=== PATIENT | female | born 1970 | race Caucasian/White ===

== ENCOUNTER → 2016-08-18 | Outpatient (CLI) | payer OTHER ==
[~2016-08-18] MED LIST: EFFSR75 PO; MULT-506 PO
--- NOTE | 2016-08-20 14:07 | MAMMOGRAPHY REPORT ---
BILATERAL DIGITAL SCREENING MAMMOGRAM TOMOSYNTHESIS WITH CAD: 08/18/2016 CLINICAL HISTORY: Routine screening examination. TECHNIQUE: Breast tomosynthesis in addition to standard 2D mammography was performed. Current study was also evaluated with a Computer Aided Detection (CAD) system. COMPARISON: Comparison is made to exams dated: 08/13/2015 mammogram, 08/07/2014 mammogram, 06/20/2013 mammogram, 06/28/2013 ultrasound, 05/24/2012 mammogram, and 05/19/2011 mammogram - [facility]. BREAST COMPOSITION: The tissue of both breasts is extremely dense, which lowers the sensitivity of mammography. FINDINGS: There is a 7 mm asymmetry with possible architectural distortion in the far superior post erior left breast, projecting near the pectoralis muscle on the MLO view, for which additional spot compression tomosynthesis, true lateral views and possibly ultrasound are recommended. A possible 4 mm mass in the far posterior inferior right breast is incompletely visualized on the MLO view. Add itional spot compression tomosynthesis, exaggerated lateral CC views and possibly ultrasound are rec ommended. No suspicious clustered microcalcifications are seen bilaterally. IMPRESSION: ACR BI-RADS CATEGORY 0: INCOMPLETE EVALUATION: NEED ADDITIONAL IMAGING EVALUATION The asymmetry with possible associated distortion in the far superior and posterior left breast, an d possible 4 mm mass in the posterior inferior right breast need additional imaging evaluation. The patient will be called to schedule an appointment. Approximately 10% of breast cancers are not detected with mammography. A negative mammographic repor t should not delay biopsy if a clinically suggestive mass is present. Roseann Cunningham M.D. ay/:08/19/2016 21:55:31 Softball Umpire: Loraine VILLEGAS(Krystyna)([place]), [facility] letter sent: Addl Imaging 0 BI-RADS Code: ACR BI-RADS Category 0: Incomplete Evaluation: Need Additional Imaging Evaluation
== END | disposition home or self-care (01) ==
LOC: C.MAMM 11:21
PROVIDERS: ATTEND Family Medicine
DX: Z12.31 Encounter for screening mammogram for malignant neoplasm of breast (principal); R92.8 Other abnormal and inconclusive findings on diagnostic imaging of breast

== ENCOUNTER → 2016-08-27 | Outpatient (CLI) | payer OTHER ==
--- NOTE | 2016-08-27 12:47 | MAMMOGRAPHY REPORT ---
BILATERAL DIGITAL DIAGNOSTIC MAMMOGRAM TOMOSYNTHESIS AND TARGETED BILATERAL ULTRASOUND: 08/27/2016 CLINICAL HISTORY: 45 are old woman called back from screening mammography for a superior posterior a symmetry in the left breast, and inferior posterior asymmetry in the right breast. Family history o f breast cancer = paternal aunt. TECHNIQUE: Spot compression tomosynthesis MLO images of each breast, and tomosynthesis left ML views were obtained. COMPARISON: Comparison is made to exams dated: 08/18/2016 mammogram, 08/13/2015 mammogram, 08/07/2014 mammogram, 01/06/2014 mammogram, 06/28/2013 ultrasound, and 05/24/2012 mammogram - [facility]. BREAST COMPOSITION: The tissue of both breasts is extremely dense, which lowers the sensitivity of mammography. FINDINGS: On the spot compression MLO view of the right breast, there is persistence of a 6.9 mm ma ss in the far posterior, slightly inferior breast. No associated architectural distortion or cluste red micro-calcification. Further characterization with ultrasound was performed. This corresponds to the lateral aspect of the breast based on its location in the talus and this is series. The spot compression MLO view of the left superior and posterior breast demonstrates partial effacement of t he asymmetry with possible associated distortion. The spot compression MLO view and left MLO view a ppear very similar to prior available mammograms, particularly the 2012 mammogram suggesting it repr esents normal overlapping tissue. Further evaluation with ultrasound was performed. Targeted ultrasound was performed in the right breast from approximately 10:00 through 7:00 axes, re troareolar breast and 2:00 to 4:00 axes and also throughout the superior left breast. In the left 1 2:00 breast, 8 cm from the nipple, there is an island of more hypoechoic tissue that is parallel in orientation. No significant increased vascularity. This most likely represents an island of normal dense fibroglandular tissue versus stromal fibrosis and is not thought to correlate with the effaci ng mammographic asymmetry. Nevertheless, a short interval follow-up targeted ultrasound is recommen d to ensure stability in 6 months. Approximate measurements are 8.5 x 2.1 x 8.9 mm. In the right 9:00 breast, 6 cm from the nipple, a morphologically normal lymph node is identified me asuring 6.3 mm. It has a thin cortex measuring 0.9 mm. Another oval parallel circumscribed nearly anechoic solid versus cystic masses identified in the 7:00 right breast, 3 cm from the nipple, measu ring 6.6 x 2.4 mm. There is internal echogenicity and intermittent internal blood flow. This could represent an additional lymph node or, located cyst. A short interval follow-up is recommended to ensure stability in 6 months. It is unclear if this mass or the lymph node in the 9:00 breast corre lates with the persistent mammographic mass as they both measure the same size. No suspicious solid masses identified. IMPRESSION: ACR-BI-RADS CATEGORY 3: PROBABLY BENIGN, TARGETED ULTRASOUND ACR-BI-RADS CATEGORY 3: ID OBABLY BENIGN 1. The left superior posterior asymmetry effaces with additional mammographic views and there is no suspicious sonographic correlate. A short interval follow-up diagnostic mammogram is recommended t o ensure stability in 6 months, and targeted left breast ultrasound should also be performed at the same time for an incidentally identified island of dense glandular tissue versus stromal fibrosis in the 12:00 axis. 2. A 6.9 mm incompletely visualized mass in the inferior, far posterior right breast may correlate with a benign lymph node in the 9:00 axis versus a lymph node versus, located cyst in the 7:00 right breast. Both of the sonographic findings have a probably benign appearance and no suspicious mass was seen on ultrasound throughout the right breast. Nevertheless, a short interval follow-up right mammogram including tomosynthesis images and repeat targeted ultrasound in the 9:00 and 7:00 axes is recommended to ensure stability in 6 months. These results and recommendations were discussed with the patient at the time of the exam. Approximately 10% of breast cancers are not detected with mammography. A negative mammographic repor t should not delay biopsy if a clinically suggestive mass is present. Roseann Cunningham M.D. ay/:08/27/2016 10:38:18 Commissioner Of Internal Revenue: Aster BARREAR)([place]), [facility] letter sent: Follow Up Recommended 3 BI-RADS Code: ACR-BI-RADS Category 3: Probably Benign Ultrasound BI-RADS: ACR-BI-RADS Category 3: P robably Benign
== END | disposition home or self-care (01) ==
LOC: C.MAMM 09:51
PROVIDERS: ATTEND Family Medicine
DX: R92.8 Other abnormal and inconclusive findings on diagnostic imaging of breast (principal); N63 Unspecified lump in breast; Z80.3 Family history of malignant neoplasm of breast

== ENCOUNTER → 2016-09-22 | Outpatient (CLI) | payer OTHER | END | disposition home or self-care (01) | LOC: C.PAPS 12:00 | PROVIDERS: ATTEND Obstetrics & Gynecology | DX: Z12.4 Encounter for screening for malignant neoplasm of cervix (principal) ==

== ENCOUNTER → 2016-09-22 | Outpatient (CLI) | payer OTHER ==
[2016-09-22 12:17] LABS: URINE APPEARANCE CLEAR (CLEAR); URINE BILIRUBIN NEG (NEG); URINE COLOR DK YELLOW; URINE EPITHELIAL CELL AUTO >30 /lpf (0-5); URINE NITRITE NEG (NEG); URINE SPECIFIC GRAVITY 1.019 (1.000-1.030); UROBILINOGEN NEG (NEG)
[2016-09-22 12:28] LABS: MANUAL MICROSCOPIC REQUIRED? NO; REVIEW REQ? NO
== END | disposition home or self-care (01) ==
LOC: C.LABSPEC 11:24
PROVIDERS: ATTEND Obstetrics & Gynecology
DX: R30.0 Dysuria (principal)

== ENCOUNTER → 2016-11-14 | Outpatient (CLI) | payer OTHER ==
--- NOTE | 2016-11-14 09:02 | DIAGNOSTIC IMAGING REPORT ---
LUMBAR SPINE 5 VIEWS CLINICAL HISTORY: Low back pain. FINDINGS: 5 views of the lumbar spine are correlated with abdominal CT dated 06/02/2016. The skeletal structures are well mineralized. There is no radiographic evidence of fracture or malalignment. Vertebral body height and alignment are maintained. The transverse and spinous processes are intact. There is no evidence of spondylolysis. The intervertebral disc spaces are well-maintained. The visualized bony pelvis appears intact. There is a nonobstructed abdominal bowel gas pattern. Moderate constipation is observed. Suture material and phleboliths are identified in the pelvis. IMPRESSION: Unremarkable radiographic evaluation of the lumbosacral spine. Electronically signed by: Nils Garrido M.D. 11/14/2016 9:00 AM Dictated Date/Time: 11/14/2016 8:58 AM
== END | disposition home or self-care (01) ==
LOC: C.RAD1850 08:37
PROVIDERS: ATTEND Family Medicine
DX: M54.5 Low back pain (principal)

== ENCOUNTER → 2017-03-02 | Outpatient (CLI) | payer OTHER ==
--- NOTE | 2017-03-02 12:30 | MAMMOGRAPHY REPORT ---
BILATERAL DIGITAL DIAGNOSTIC MAMMOGRAM TOMOSYNTHESIS WITH CAD AND TARGETED BILATERAL ULTRASOUND: 2016 CLINICAL HISTORY: 46-year-old woman presents for follow-up of bilateral asymmetries. TECHNIQUE: Breast tomosynthesis in addition to standard 2D mammography was performed. Current study was also evaluated with a Computer Aided Detection (CAD) system. COMPARISON: Comparison is made to exams dated: 08/27/2016 mammogram, 08/27/2016 ultrasound, 08/18/2016 ma mmogram, 08/13/2015 mammogram, 08/07/2014 mammogram, and 01/06/2014 mammogram - [facility] nt. BREAST COMPOSITION: The tissue of both breasts is extremely dense, which lowers the sensitivity of m ammography. FINDINGS: The breast parenchymal pattern is similar to prior exams. An asymmetry is again seen in t superior posterior left breast on the MLO view, 7.8 cm from the nipple. The asymmetry remains justin ewhat angular in appearance on the 2-D view, although this appearance is similar dating back to 2010. However, on the tomosynthesis images, there is possible architectural distortion and further evalua tion with ultrasound was performed. No other suspicious mass, architectural distortion or cluster of microcalcifications is seen in the left breast. A small, 3 x 4 mm nodular asymmetry is again seen in the far posterior and inferior right breast on t MLO view. No corresponding abnormality on the CC view. On the tomosynthesis images in the MLO pr ojection, the asymmetry effaces and has the appearance of normal fibroglandular tissue. No other new mass, architectural distortion or suspicious calcifications are seen in the right breast. Targeted ultrasound was performed in the superior left breast, and in the lateral right breast. In t he 11:00 to 12:00 left breast, 8 cm from the nipple, there is a subtle textural difference with mixed echogenicity and central hypoechoic irregular tissue, measuring approximately 6.7 x 2.4 x 7.1 mm. T his does not appear changed comparing to the prior ultrasound dated 08/27/2016, and may correlate wit h the angular mammographic asymmetry. Definitive characterization with an ultrasound guided core bio psy is recommended. Ultrasound performed in the lateral right breast 7:00 axis, 3 cm from the nipple, fails to demonstrat e the previously observed hypoechoic benign-appearing mass. A morphologically normal lymph node is a gain seen in the 9:00 right breast, 6 cm from the nipple. No other suspicious solid mass is seen in the lateral right breast. IMPRESSION: ACR BI-RADS CATEGORY 4B: INTERMEDIATE SUSPICION FOR MALIGNANCY, TARGETED ULTRASOUND ACR BI-RADS CATEGORY 4B: INTERMEDIATE SUSPICION FOR MALIGNANCY 1. Ultrasound guided core biopsy is recommended for an irregular except echogenicity, centrally hypo echoic 7 mm mass in the 11:00 to 12:00 left breast, 8 cm from the nipple. Correlation with postproce dure tomosynthesis images is recommended to ensure this lesion correlates with the mammographic asymm etry. 2. Less conspicuous nodular asymmetry in the inferior posterior right breast on the MLO view, that h as the appearance of normal overlapping glandular tissue on the tomosynthesis images. No suspicious sonographic correlate was seen. Pending benign pathology results in the left breast, another six-mon th follow-up right diagnostic mammogram and possible ultrasound is recommended to ensure longer stabi lity. These results and recommendations were discussed with the patient at the time of the exam. Approximately 10% of breast cancers are not detected with mammography. A negative mammographic report should not delay biopsy if a clinically suggestive mass is present. Roseann Cunningham M.D. ay/:03/02/2017 08:53:20 Enterprise Applications Manager: Aster VILLEGAS(Krystyna)(M), [facility] letter sent: Abnormal 4/5 BI-RADS Code: ACR BI-RADS Category 4B: Intermediate Suspicion For Malignancy Ultrasound BI-RADS: ACR BI-RADS Category 4B: Intermediate Suspicion For Malignancy
== END | disposition home or self-care (01) ==
LOC: C.MAMM 08:11
PROVIDERS: ATTEND Family Medicine
DX: Z09 Encounter for follow-up examination after completed treatment for conditions other than malignant neoplasm (principal); R92.8 Other abnormal and inconclusive findings on diagnostic imaging of breast; N63 Unspecified lump in breast; N64.89 Other specified disorders of breast

== ENCOUNTER → 2017-03-09 | Outpatient (CLI) | payer OTHER ==
--- NOTE | 2017-03-09 11:51 | Discharge Instructions ---
Discharge Instructions Procedure Procedure Date: Mar 09, 2017. Reason for visit: Left Mass. Discharge Discharge Date: Mar 09, 2017. Discharge Diagnosis: post left breast ultrasound guided core biopsy Instructions Activity Recommendations: Additional Limitations (see below) Return to School/Work: no limitations Recommended Home Diet: No Limitations Provider Instructions: ACTIVITY RECOMMENDATIONS: * No lifting, pushing, pulling or exercising the affected side for three days. RETURN TO SCHOOL/WORK: * You may return to work/school after the procedure, but do not perform any strenuous activities for 24 to 48 hours. MEDICATIONS: * Tylenol (two 325 mg) every four to six hours if needed for mild pain (if not allergic to Tylenol). DIET: * Resume previous diet. SPECIAL CARE INSTRUCTIONS: * Keep biopsy site dry for 24 hours. May shower after 24 hours, but do not soak (bathe) incision. * May remove Tegaderm (plastic patch) tomorrow AFTER showering. * Leave the steri-strips on for one week. Allow the steri-strips to fall off by themselves. If not off after one week, you may remove them. You may place a Bandaid crosswise over the strips, if desired. * Apply ice 10 minutes on and 10 minutes off as needed. * Wear a bra at bedtime to sleep more comfortably for 2-3 days. * Your referring physician should have the results after approximately 5 to 7 business days. * Call for unusual bleeding, fever, drainage, etc or if you have any questions call [phone] during normal business hours or after hours call Dr Cunningham, . FOLLOW UP VISIT: Follow-up with Referring Physician as scheduled. Allergies Coded Allergies: No Known Allergies (Verified , 11/13/15) Abigail Daniels Recommendations: Call your doctor if: * Temperature above 101 degrees * Pain not relieved by pain medicine ordered * There is increased drainage or redness from any incision * You have any unanswered questions or concerns. Your Doctors Instructions noted above were prepared by provider Roseann Cunningham. Patient Signature Section: Patient Instructions Signature Page Jocy Mendoza Patient (or Guardian) Signature/Date: I have read and understand the instructions given to me by my caregivers. Caregiver/RN/Doctor Signature/Date: The above-named patient and/or guardian has received patient instructions on this date. + Original Patient Signature Page (only) stays with chart. Please make copy for patient.
--- NOTE | 2017-03-09 14:33 | MAMMOGRAPHY REPORT ---
THIS REPORT HAS BEEN AMENDED. ULTRASOUND GUIDED BIOPSY LEFT BREAST: 03/09/2017 CLINICAL HISTORY: 46-year-old woman presents for biopsy of a subtle mixed echogenicity mass in the 11 :00 left breast, 8 cm from the nipple, thought to correlate with a possible area of architectural dis tortion seen on the left MLO view mammographically. COMPARISON: Comparison is made to exams dated: 03/02/2017 ultrasound, 03/02/2017 mammogram, 08/27/2016 [facility] mogram, 08/27/2016 ultrasound, 08/18/2016 mammogram, and 08/13/2015 mammogram - [facility]. PATIENT CONSENT: The procedure, risks and benefits were discussed with the patient and informed conse nt was obtained both verbally and in writing. Specific risks to this procedure include: bleeding, in fection, puncture of adjacent structure, nontarget biopsy, sampling error, pain, metal allergy and me dication reaction. PROCEDURE DESCRIPTION: A time out was performed and the left breast was agreed as the site of biopsy. The skin was prepped and draped in the usual sterile fashion. The subtle mixed echogenicity mass in the 11:00 left breast was chosen as the target for biopsy. Subcutaneous and intraparenchymal 1% buffe red lidocaine, with and without epinephrine, was administered as local anesthesia. A skin incision wa s made. Through the incision, 3 samples were taken with a 14 gauge Achieve biopsy device. A ribbon s haped metallic marker was placed at the biopsy site. Hemostasis was achieved after manual compression . The patient tolerated the procedure well and there was no immediate complication. The samples were sent to the pathology department in an appropriately labeled container. Postprocedure left CC, ML and MLO views were obtained. The biopsy clip is not identified on the CC v iew given the far posterior and upper inner location. The biopsy marker clip is seen on the MLO and MLO views. Based on the MLO projection the biopsy marker clip is near the area of previously describ ed distortion, which is less prominent on the current view. There is minimal post biopsy hematoma sl ightly distorting the tissue planes and making it difficult to assess for definitive mammographicson ographic correlation. Therefore, pending benign pathology results, would recommend follow-up left di agnostic mammograms and possible ultrasound to ensure stability in 6 months. IMPRESSION: ULTRASOUND GUIDED BIOPSY Status post ultrasound-guided core biopsy of a subtle mixed echogenicity mass in the 11:00 left breas t thought to correlate with a possible area of distortion seen mammographically. Pending benign pathology results would recommend follow-up left diagnostic mammograms including tomos ynthesis images and possible ultrasound to ensure stability in 6 months, given that a small amount of post biopsy hematoma distorts tissue planes and is difficult to confirm definitive mammographicsono graphic correlation of the biopsy marker clip with regard to the distortion. The patient will receive notification of the biopsy results from her referring physician. Roseann Cunningham M.D. ay/:03/09/2017 12:23:04 Manager Physical: Loraine BARRERA)([place]), [facility] AMENDMENT: 03/18/2017 Roseann Cunningham M.D. Pathology results from the ultrasound-guided core biopsy of a questionable area of architectural dist ortion in the 11:00 breast yielded fibrocystic change. No ADH, DCIS or invasive carcinoma identified . The pathology results are considered concordant with the imaging appearance of questionable distor tion, and given the small amount of bleeding on the postprocedure images to assess for mammographics onographic correlation, a short interval follow-up left diagnostic mammogram including tomosynthesis images and possible repeat ultrasound is recommended to ensure stability in 6 months. letter sent: Follow Up Recommended 3
--- NOTE | 2017-03-09 14:33 | MAMMOGRAPHY REPORT ---
UNILATERAL LEFT DIGITAL DIAGNOSTIC MAMMOGRAM TOMOSYNTHESIS WITH CAD: 03/09/2017 CLINICAL HISTORY: Status post ultrasound guided core biopsy of a mixed echogenicity hypoechoic solid mass in the left 11:00 breast, thought to correlate with a possible area of architectural distortion seen mammographically. Please refer to the report for left breast ultrasound guided core biopsy performed at the same time f or full detail. IMPRESSION: POST PROCEDURE IMAGING FOR MARKER PLACEMENT Please refer to the report for left breast ultrasound guided core biopsy performed at the same time f or full detail. Approximately 10% of breast cancers are not detected with mammography. A negative mammographic report should not delay biopsy if a clinically suggestive mass is present. Roseann Cunningham M.D. ay/:03/09/2017 11:52:55 Living Skills Advisor: Loraine BARRERA)([place]), [facility] BI-RADS Code: Post Procedure Imaging For Marker Placement
== END | disposition home or self-care (01) ==
LOC: C.MAMM 11:02
PROVIDERS: ATTEND Family Medicine
DX: R92.8 Other abnormal and inconclusive findings on diagnostic imaging of breast (principal); N63 Unspecified lump in breast

== ENCOUNTER → 2017-06-12 | Outpatient (CLI) | payer OTHER ==
[2017-06-12 11:42] LABS: URINE APPEARANCE CLOUDY (CLEAR); URINE BILIRUBIN NEG (NEG); URINE COLOR DK YELLOW; URINE EPITHELIAL CELL AUTO >30 /lpf (0-5); URINE NITRITE NEG (NEG); URINE PH 7.5 (4.5-7.5); URINE SPECIFIC GRAVITY 1.017 (1.000-1.030); UROBILINOGEN NEG (NEG)
[2017-06-12 11:44] LABS: MANUAL MICROSCOPIC REQUIRED? NO; REVIEW REQ? NO
== END | disposition home or self-care (01) ==
LOC: C.LABSPEC 11:01
PROVIDERS: ATTEND Family Medicine
DX: R30.0 Dysuria (principal)

== ENCOUNTER → 2017-07-23 | Outpatient (CLI) | payer OTHER ==
[2017-07-23 14:53] LABS: MANUAL MICROSCOPIC REQUIRED? NO; REVIEW REQ? NO; URINE APPEARANCE CLEAR (CLEAR); URINE BILIRUBIN NEG (NEG); URINE COLOR YELLOW; URINE EPITHELIAL CELL AUTO >30 /lpf (0-5); URINE NITRITE NEG (NEG); URINE PH 5.5 (4.5-7.5); URINE SPECIFIC GRAVITY 1.023 (1.000-1.030); UROBILINOGEN NEG (NEG); ZZUR CULT IF INDIC CLEAN CATCH YES
== END | disposition home or self-care (01) ==
LOC: C.LAB1850 13:47
PROVIDERS: ATTEND Obstetrics & Gynecology
DX: R39.15 Urgency of urination (principal)

== ENCOUNTER → 2017-09-23 | Outpatient (CLI) | payer OTHER ==
--- NOTE | 2017-09-23 15:56 | MAMMOGRAPHY REPORT ---
UNILATERAL LEFT DIGITAL DIAGNOSTIC MAMMOGRAM TOMOSYNTHESIS WITH CAD: 09/23/2017 CLINICAL HISTORY: History of benign ultrasound guided core needle biopsy of the left 11:00 breast per formed February 2017. The patient presents for short interval follow-up after the biopsy. TECHNIQUE: Breast tomosynthesis in addition to standard 2D mammography was performed. Current study was also evaluated with a Computer Aided Detection (CAD) system. Left CC and MLO and XCCL 2-D and to mosynthesis images were obtained. COMPARISON: Comparison is made to exams dated: 03/09/2017 mammogram, 03/09/2017 ultrasound biopsy, 03/02 ultrasound, 03/02/2017 mammogram, 08/27/2016 mammogram, and 08/18/2016 mammogram - [facility]. BREAST COMPOSITION: The tissue of the left breast is extremely dense, which lowers the sensitivity o f mammography. FINDINGS: A ribbon-shaped biopsy marker clip is seen within the left superior posterior breast at the site of prior benign ultrasound-guided biopsy. The biopsy clip is located at the site of a previous ly seen mammographic asymmetry, indicating good correlation between the biopsied sonographic finding and the mammographic asymmetry. The remainder of the left breast is stable compared to prior exams, without suspicious masses, calcifications, or areas of architectural distortion noted. IMPRESSION: ACR BI-RADS CATEGORY 2: BENIGN There is no mammographic evidence of malignancy in the left breast. Return to annual mammogram screen ing schedule is recommended, due February 2018. The patient has been verbally notified of the results. Approximately 10% of breast cancers are not detected with mammography. A negative mammographic report should not delay biopsy if a clinically suggestive mass is present. Crystal Barillas M.D. ah/:09/23/2017 14:05:25 Buckle Coverer: Aster VILLEGAS(Krystyna)(M), [facility] letter sent: Normal 1/2 BI-RADS Code: ACR BI-RADS Category 2: Benign
== END | disposition home or self-care (01) ==
LOC: C.MAMM 13:45
PROVIDERS: ATTEND Family Medicine
DX: R92.8 Other abnormal and inconclusive findings on diagnostic imaging of breast (principal)

== ENCOUNTER → 2017-10-19 | Outpatient (CLI) | payer OTHER | END | disposition home or self-care (01) | LOC: C.PAPS 14:14 | PROVIDERS: ATTEND Obstetrics & Gynecology | DX: Z01.419 Encounter for gynecological examination (general) (routine) without abnormal findings (principal) ==

== ENCOUNTER → 2018-03-01 | Outpatient (CLI) | payer BC | END | disposition home or self-care (01) | LOC: C.PATHSPEC 18:36 | PROVIDERS: ATTEND Family Medicine | DX: D23.9 Other benign neoplasm of skin, unspecified (principal) ==

== ENCOUNTER → 2018-03-08 | Outpatient (CLI) | payer BC ==
--- NOTE | 2018-03-09 14:59 | MAMMOGRAPHY REPORT ---
BILATERAL DIGITAL SCREENING MAMMOGRAM TOMOSYNTHESIS WITH CAD: 03/08/2018 CLINICAL HISTORY: Routine screening. Patient has no complaints. TECHNIQUE: The study was acquired using full field digital technology and interpreted from soft copy. Breast tomosynthesis in addition to standard 2D mammography was performed. Current study was also ev aluated with a Computer Aided Detection (CAD) system. COMPARISON: Comparison is made to exams dated: 09/23/2017 mammogram, 03/09/2017 mammogram, 03/02/2017 ma mmogram, 08/27/2016 mammogram, 08/18/2016 mammogram, and 08/13/2015 mammogram - [facility]. BREAST COMPOSITION: The tissue of both breasts is extremely dense, which lowers the sensitivity of ma mmography. FINDINGS: There are stable asymmetries in the superior, posterior left breast on the MLO view, and a stable ribbon-shaped biopsy marker clip projecting over the left pectoralis muscle. No new suspicious mass, architectural distortion or cluster of microcalcifications is seen. IMPRESSION: ACR BI-RADS CATEGORY 1: NEGATIVE There is no mammographic evidence of malignancy. A 1 year screening mammogram is recommended.( 019) The patient will receive written notification of the results. Some breast cancers are not detected with mammography. A negative mammographic report should not mae y biopsy if a clinically suggestive mass is present. Roseann Cunningham M.D. ay/:03/08/2018 16:01:43 Courseware Developer: RT Jessica(Krystyna)(M), [facility] letter sent: Normal 1/2 BI-RADS Code: ACR BI-RADS Category 1: Negative
== END | disposition home or self-care (01) ==
LOC: C.MAMM 14:14
PROVIDERS: ATTEND Family Medicine
DX: Z12.31 Encounter for screening mammogram for malignant neoplasm of breast (principal)

== ENCOUNTER 2023-08-21 04:57 | Observation (INO) ==
--- NOTE | 2023-07-21 11:35 | PAT Medication Instructions ---
Medication Instructions Date of Service July 21, 2023 Home Medications multivitamin (Daily Multi-Vitamin tablet) 1 tab PO QAM acetaminophen 650 mg tablet,extended release 1,300 mg PO QAM hydrocortisone 2.5 % topical ointment 1 applic topical UD linaclotide 290 mcg capsule (Linzess) 290 mcg PO Q2D venlafaxine 75 mg capsule,extended release 24 hr 75 mg PO QAM STOP taking 24 hours before surgery hydrocortisone 2.5 % topical ointment 1 applic topical UD DO NOT take the morning of surgery multivitamin (Daily Multi-Vitamin tablet) 1 tab PO QAM linaclotide 290 mcg capsule (Linzess) 290 mcg PO Q2D Take morning of surgery With a small sip of water, OTHERWISE NOTHING TO EAT OR DRINK AFTER MIDNIGHT: acetaminophen 650 mg tablet,extended release 1,300 mg PO QAM venlafaxine 75 mg capsule,extended release 24 hr 75 mg PO QAM Other Notes If you have any questions please call us at [phone] or [phone] or [phone] or [phone]
--- NOTE | 2023-07-29 09:09 | Anesthesiology Consultation ---
Date of Service July 29, 2023 Assessment & Plan (1) Encounter for pre-operative examination: Chart Review Chart Review: Acceptable Risk for Surgery and Patient seen in Pre Admission Testing At least 3 beers daily (usually in evenings) Pt currently scheduled as 23 hours observation. If surgeon decides to change patient to Same Day Joint, patient would be acceptable risk for CROW, pending patient is motivated, has good support and surgeon's office completes [facility] Program preop requirements. Per PAT appt on 07/29/23, no recent illness/disease exposures, illness related symptoms, or recent illness/disease positive tests. Will leave to surgeon's discretion if preop Covid testing needed Teaching & Discussion Pre-Anesthesia Teaching/Discussion Notes: Instructed NPO after midnight before surgery,except medications with 15 cc of water. Medication instructions provided according to the PAT guidelines. History Surgery Operation Date: 08/21/23 08:55 Proposed Procedures p Left Anterior Total Hip Arthroplasty - Roberto Carlos Boyle, Height/Weight Height: 5 ft 6 in Weight: 54.2 kg Allergies Allergy/AdvReac Type Severity Reaction Status Date / Time No Known Allergies Allergy Unknown Verified 07/16/23 15:57 Medications Home Medications Medication Instructions Recorded Confirmed Last Taken multivitamin (Daily Multi-Vitamin 1 tab PO QAM 03/16/19 07/16/23 Unknown tablet) acetaminophen 650 mg 1,300 mg PO QAM 07/16/23 07/16/23 Unknown tablet,extended release hydrocortisone 2.5 % topical 1 applic topical UD 07/16/23 07/16/23 Unknown ointment linaclotide 290 mcg capsule 290 mcg PO Q2D 07/16/23 07/16/23 Unknown (Linzess) venlafaxine 75 mg capsule,extended 75 mg PO QAM 07/16/23 07/16/23 Unknown release 24 hr Past Medical History Medical History Hx of migraines Raynaud phenomenon Constipation Chronic- stable Depression History of stomach ulcers ~2018 Exercise / Class Metabolic Activity II 4-5 Yardwork/Stairs/Walk up hill (one flight of stairs - no chest pain or SOB ) Past Family History Family History Uncle Myocardial infarction Colorectal cancer Aunt Crohn's disease Breast cancer Father Respiratory disorder Sister Muscular dystrophy Denies family history of Ovarian cancer Prostate cancer Past Surgical History Surgical History Hx of shoulder surgery right, 2020 History of esophagogastroduodenoscopy (EGD) History of colonoscopy History of colposcopy History of appendectomy (2015) Past Anesthesia History No Hx of Anesthesia Complications and No Family Hx of Anesthesia Complications History of PONV No Hx of PONV and No Hx of Motion Sickness Social History Smoking Status: Never smoker Do You Dip or Chew Tobacco: No Hx Alcohol Use: Yes Alcohol type: beer alcohol intake frequency: other Alcohol Intake Frequency Comment: tries to keep it to 3/day (usually in the evening) Hx Substance Use: No substance use type: does not use Review of Systems - Hx of blood transfusion 2018 (bleeding ulcer) Patient denies chest pain, shortness of breath, dyspnea on exertion, reflux, cough, wheezing, palpitations. No hx of seizures, stroke, AL, apnea/snoring. No hx of blood clots Physical Exam Vital Signs VITALS BP 110/76 P 64 TEMP 97.5 SP02 98% RESP 16 Constitutional no acute distress ENMT Mouth: no TMJ clicking Thyromental Distance: > or= 3.5 Finger Breadths (3.5) Mallampati Class: III Neck neck extension not limited Respiratory normal respiratory effort; no respiratory distress Auscultation: lungs clear to auscultation bilaterally; no wheezes Cardiovascular Rate/Rhythm: regular rate and regular rhythm Heart Sounds: no murmur Vessels: no carotid bruit Musculoskeletal Spine: no pain with cervical ROM Extremities: extremities normal to inspection Psychiatric Orientation: alert Lab Results Anesthesia Preop Results Results Anesthesia Widget: WBC 4.18 K/ul (4.8-10.8) L 07/29/23 Hgb 12.6 g/dl (12.0-16.0) 07/29/23 Hct 38.5 % (37.0-47.0) 07/29/23 Plt 239 K/uL (130-400) 07/29/23 Na 140 mmol/L (136-145) 07/29/23 K 3.9 mmol/L (3.5-5.1) 07/29/23 Cl 104 mmol/L (98-107) 07/29/23 CO2 28 mmol/L (21-32) 07/29/23 BUN 22 mg/dl (6-23) 07/29/23 Creat 0.75 mg/dl (0.6-1.2) 07/29/23 Glucose Level 82 mg/dl (70-99(Fasting)) 07/29/23 PT 10.4 Seconds (9.0-12.0) 07/29/23 PTT 29 Seconds (21-31) 07/29/23 INR 0.9 (0.9-1.1) 07/29/23 Blood Type O Positive 07/29/23 Antibody Screen NEGATIVE 07/29/23 Testing Electrocardiogram Date: 07/29/23 Findings: + NSR @ (60bpm) Rightward axis Chest X-Ray Date: 07/29/23 Findings: + NAD
[2023-08-21] MEDS ORDERED: FAMOTIDINE 20 MG TAB PO SCH (06:00)
[2023-08-21] MEDS ORDERED: dexAMETHasone**PF** 10 MG/ML VIAL IV SCH (06:00)
[2023-08-21] MEDS ORDERED: GABAPENTIN 900 MG DOSE PO SCH (06:00)
[2023-08-21] MEDS ORDERED: ACETAMINOPHEN 500 MG TAB PO SCH (06:00)
[2023-08-21] MEDS ORDERED: ROPIV 0.5% 246mg, Ketorolac 30mg, EPINEPHrine 0.5mg in NSS INFIL SCH (06:00)
[2023-08-21] MEDS ORDERED: LR 500ML BOLUS, THEN 15ML/HR IV SCH (06:00)
[2023-08-21] MEDS ORDERED: TRANEXAMIC ACID 1,000 MG **IV Intra-op IV SCH (06:00)
[2023-08-21] MEDS ORDERED: LR 60ML/HR IV SCH (06:00)
[2023-08-21] MEDS ORDERED: TRANEXAMIC ACID 1,000 MG **IV Pre-op IV SCH (06:00)
[2023-08-21] MEDS ORDERED: ceFAZolin 2000MG 2,000 MG/15 ML SYR IV SCH (06:00)
[2023-08-21] MEDS ORDERED: ROPIVACAINE 0.5% 5 MG/ML 30 ML VIAL ONE (06:15)
[2023-08-21] MEDS ORDERED: MIDAZOLAM HCL 1 MG/ML 2ML VIAL ONE ×2 (06:29→07:36)
[2023-08-21] MEDS ORDERED: fentaNYL citrate PF 100 MCG/2 ML VIAL ONE ×2 (06:29→07:14)
--- NOTE | 2023-08-21 06:36 | History & Physical Bridge Note ---
Date of Service August 21, 2023 History & Physical Bridge Note I have examined the patient, reviewed the History & Physical and in the interval since the performance of the History & Physical I have noted the following changes of clinical significance: no changes noted
[2023-08-21] MEDS ORDERED: ATROPINE SULFATE 0.1 MG/ML 10ML SYR IV PRN (06:40)
[2023-08-21] MEDS ORDERED: KETOROLAC 30 MG/ML VIAL IV PRN (06:40)
[2023-08-21] MEDS ORDERED: ePHEDrine sulfate 50 MG/ML AMP IV PRN (06:40)
[2023-08-21] MEDS ORDERED: PROMETHAZINE HCL 6.25 MG in SODIUM CHLORIDE 0.9% 50 ML IV PRN (06:40)
[2023-08-21] MEDS ORDERED: HYDROmorphone INJ 1 MG/ML SYRINGE IV PRN (06:40)
[2023-08-21] MEDS ORDERED: ORTHO JOINT ANESTHETIC ONE (06:44)
[2023-08-21 06:52] LABS: Appearance Urine Cloudy (Clear); Bacteria Urine Automated 2+ (Negative); Bilirubin Urine Negative (Negative); Blood Urine Negative (Negative); Color Urine Yellow; Glucose Urine UA Negative (Negative); Ketones Urine Negative (Negative); Leukocyte Esterase Urine Negative (Negative); Nitrite Urine Negative (Negative); Protein Urine Negative (Negative); RBC Urine Automated 0-4 /hpf (0-4); Specific Gravity Urine 1.016 (1.000-1.030); Urobilinogen Urine Negative (Negative); pH Urine 8.5 (4.5-7.5)
[2023-08-21] MEDS ORDERED: PROPOFOL IV EMULSION 10 MG/ML 20 ML VIAL IV ONE (07:24)
[2023-08-21] MEDS ORDERED: ONDANSETRON INJ 2 MG/ML 2 ML VIAL ONE (07:24)
[2023-08-21] MEDS ORDERED: LIDOCAINE 2% 2 ML VIAL/AMP(20MG/ML) INFIL ONE (07:24)
[2023-08-21] MEDS ORDERED: PHENYLEPHRINE 100MCG/ML 10ML SYR IV ONE (07:24)
[2023-08-21] MEDS ORDERED: ePHEDrine sulfate 50 MG/5 ML SYR ONE (07:24)
--- NOTE | 2023-08-21 08:02 | Operative Report ---
PG Post Operative Report Pre & Post Diagnosis Operation Date: 08/21/23 07:00 Pre-Op Diagnosis: Degnerative Joint Disease Hip Left Post-Op Diagnosis: Degnerative Joint Disease Hip Left I identified the patient and participated in the time-out.: Yes Procedure Operation Date: 08/21/23 07:00 Actual Procedures p Left Anterior Total Hip Arthroplasty(Left) - Roberto Carlos Boyle DO Surgeon Roberto Carlos Boyle DO Hospice Bereavement Coordinator Roberto Carlos Ramos PA-C Estimated Blood Loss 200 Findings Consistent with Post-Op Diagnosis Specimens Left femoral head Description of Procedure Implants used I used a ZimmerBiomet total hip arthroplasty system with a size 2 standard offset Avenir Complete stem, a 48 mm G7 cup with 2 25mm screws, an E1 polyethylene liner, a 36 mm ceramic head with a +3.5 neck. Jocy arrived at the hospital for the above procedure. She was seen in the preoperative holding area and the operative extremity was identified and signed. She was given a spinal anesthetic, a preoperative antibiotic, and TXA. She was then taken back to the operating room and laid on the table in the supine position. She was given basic sedation. The operative leg was secured to a Puristst leg positioner. The hip was then prepped and draped in sterile fashion. A timeout was done and the patient and the operative extremity was properly identified. An anterior approach was used. Dissection was taken down through the fascia and the tensor muscle belly was retracted laterally and the rectus was retracted medially. The circumflex vessels were identified and ligated. The capsule was then incised and tagged for later repair. The femoral neck was then cut and the femoral head was removed. The acetabulum was exposed. Time was spent doing a complete circumferential labral release. Sequential reaming of the acetabulum up to a size 47 reamer was done. Final reamings were done under fluoroscopy to ensure appropriate version. A Biomet 48 mm G7 cup was then impacted into place. 2 25 mm screws were placed. The E1 polyethylene liner was then snapped into place. Surrounding soft tissues were then injected with 100 cc of an orthopedic pain control cocktail. The proximal femur was then exposed. Sequential broaching up to a size 2 broach was done. Off that broach a size 36 head with a +3.5 neck was trialed. The hip was reduced and fluoroscopic images showed anatomic alignment of the implants in acceptable length. The broach was removed. The final size 2 standard offset Avenir Complete stem was then impacted into place. A ceramic 36 mm head with a +3.5 neck was then impacted onto the stem and the hip was reduced. Final fluoroscopic images showed anatomic alignment of the hip. The capsule was then closed with #1 Vicryl suture. A dilute betadyne lavage was then done for 3 minutes. The joint was then irrigated with normal saline solution. The fascia was closed with #1 PDS suture. Skin was closed with 2-0 Vicryl, compa, and a Silverlon dressing. She was then transferred to a hospital bed and taken to the post anesthesia care unit in stable condition. She tolerated the procedure well. Roberto Carlos Ramos PA-C, was present for the entire procedure. He was critical for patient positioning, prepping, draping, retraction exposure, wound closure and application of sterile dressing. I attest to the content of the Intraoperative Record and any orders documented therein. Any exceptions are noted below.
--- NOTE | 2023-08-21 08:28 | Fluoroscopy Report ---
FL hip LT 1V CLINICAL HISTORY: LT ANTERIOR CROW TECHNIQUE: 2 views were obtained with the C-arm in the OR with the above procedure. Total fluoroscopy time was 19.1 seconds. Radiation dose was 1.43 mGy. Comparison: Comparison is made to hip radiograph 08/15/2023 FINDINGS/IMPRESSION: Intraoperative images were obtained of left hip total arthroplasty Please correlate with intraoperative fluoroscopy and operative report. ACT 112: Negative or not required by law. Electronically signed by: Garett Salcedo M.D. 08/21/2023 8:27 AM
--- NOTE | 2023-08-21 09:06 | XRay Report ---
XR hip 1V LT w pelvis CLINICAL HISTORY: IN PACU - Post Surgical TECHNIQUE: 1 view of the left hip and single frontal view of the pelvis were obtained. Comparison: Comparison is made to hip radiograph 01/30/2023 FINDINGS: Patient is status post total hip arthroplasty with expected postsurgical changes including soft tissu e swelling and subcutaneous emphysema. IMPRESSION: Expected postoperative appearance status post placement of total hip arthroplasty. ACT 112: Negative or not required by law. Electronically signed by: Garett Salcedo M.D. 08/21/2023 9:05 AM
[2023-08-21] MEDS ORDERED: bisacodyL 10 MG SUPP PR PRN (09:53)
[2023-08-21] MEDS ORDERED: ONDANSETRON INJ 2 MG/ML 2 ML VIAL IV PRN (09:53)
[2023-08-21] MEDS ORDERED: MAGNESIUM HYDROXIDE SUSP 30 ML UDC PO PRN (09:53)
[2023-08-21] MEDS ORDERED: METOCLOPRAMIDE HCL INJ 5 MG/ML 2 ML VIAL IV PRN (09:53)
[2023-08-21] MEDS ORDERED: HYDROCORTISONE 2.5% OINT 20 GM TUBE TOP SCH (09:53)
[2023-08-21] MEDS ORDERED: SODIUM CHLORIDE 0.9% 1,000 ML IV SCH (09:53)
[2023-08-21] MEDS ORDERED: NALOXONE HCL 0.4 MG/1 ML VIAL/CARP IV PRN (09:53)
[2023-08-21] MEDS ORDERED: oxyCODONE HCL IR 5 MG TAB (IMMEDIATE RELEASE) PO PRN (09:53)
[2023-08-21] MEDS ORDERED: HYDROmorphone INJ 0.5 MG/0.5 ML SYR IV PRN (09:53)
[2023-08-21] MEDS: VENLAFAXINE HCL XR 75 MG CAPXR PO SCH (10:28)
[2023-08-21] MEDS: KETOROLAC 30 MG/ML VIAL IV SCH ×3 (11:06→23:23)
[2023-08-21] MEDS: MULTIVITAMIN TAB PO SCH (11:07)
[2023-08-21] MEDS: ASPIRIN 81 MG ECTAB PO SCH ×2 (11:07→20:24)
[2023-08-21] MEDS: DOCUSATE SODIUM 100 MG CAP PO SCH ×2 (11:07→20:24)
--- NOTE | 2023-08-21 11:48 | Anesthesiology Progress Note ---
Date of Service August 21, 2023 Anesthesia Post Procedure Vital Signs Vital Signs: Temp Pulse Pulse Pulse Resp BP Pulse Ox 08/21/23 10:50 36.3 C L 86 16 95/58 L 100 08/21/23 10:17 36.5 C 77 16 94/57 L 100 08/21/23 09:53 36.5 C 80 20 99/62 L 100 08/21/23 09:30 36.3 C L 72 17 99/56 L 95 08/21/23 09:20 72 17 99/56 L 95 08/21/23 09:10 77 16 102/59 L 98 08/21/23 09:00 73 21 102/59 L 97 08/21/23 08:50 73 20 101/62 93 08/21/23 08:40 88 21 99/59 L 98 08/21/23 08:30 72 12 111/63 98 08/21/23 08:20 36 C L 88 19 104/60 98 08/21/23 05:31 36.8 C 62 18 118/77 98 O2 Del Method 08/21/23 10:50 Room Air 08/21/23 10:17 Room Air 08/21/23 09:53 Room Air 08/21/23 09:30 Room Air 08/21/23 09:20 Room Air 08/21/23 09:10 Room Air 08/21/23 09:00 Room Air 08/21/23 08:50 Room Air 08/21/23 08:40 Room Air 08/21/23 08:30 Room Air 08/21/23 08:20 Room Air 08/21/23 05:31 Room Air Pain Intensity Left Hip: Pain Intensity: 2 Transfer of Care Handoff Completed per policy Notes Mental Status: alert / awake / arousable Patient Amnestic to Procedure: Yes Nausea / Vomiting: adequately controlled Pain: adequately controlled Airway Patency, RR, SpO2: stable & adequate BP & HR: stable & adequate Hydration State: stable & adequate Neuraxial Anesthesia: was administered and sensory block is resolving Anesthetic Complications: no major complications apparent
[2023-08-21] MEDS: ACETAMINOPHEN 500 MG TAB PO SCH ×2 (14:33→20:24)
[2023-08-21] MEDS: ceFAZolin 2000MG 2,000 MG/15 ML SYR IV SCH ×2 (14:45→23:23)
[2023-08-21] MEDS: SENNA 8.6 MG TAB PO SCH (20:25)
[2023-08-22 00:08] LABS: Basophils # (auto) 0.06 K/uL (0.00-0.20); Basophils % (auto) 0.4 %; Eosinophils # (auto) 0.02 K/uL (0.00-0.50); Eosinophils % (auto) 0.1 %; Hematocrit (blood only) 28.3 % (37.0-47.0); Hemoglobin 9.4 g/dl (12.0-16.0); Immature Granulocytes # (auto) 0.09 K/uL (0.01-0.20); Immature Granulocytes % (auto) 0.6 %; Lymphocytes # (auto) 2.79 K/uL (1.20-3.40); Lymphocytes % (auto) 18.9 %; Mean Corpuscular Hemoglobin 30.1 pg (25.0-34.0); Mean Corpuscular Hgb Conc 33.2 g/dL (32.0-36.0); Mean Corpuscular Volume 90.7 fL (80.0-100.0); Mean Platelet Volume 11.7 fL (9.4-12.4); Monocytes # (auto) 1.61 K/uL (0.11-0.59); Monocytes % (auto) 10.9 %; Neutrophils # (auto) 10.16 K/uL (1.40-6.50); Neutrophils % (auto) 69.1 %; Platelet Count 207 K/uL (130-400); RDW Coefficient of Variation 12.4 % (11.5-14.5); Red Blood Count 3.12 M/uL (4.20-5.40); White Blood Count 14.73 K/ul (4.8-10.8)
--- NOTE | 2023-08-22 00:20 | Hospitalist Consultation ---
Date of Consultation August 22, 2023 Assessment & Plan (1) Status post left hip replacement: -Patient is status post left hip arthroscopy done by Dr. Boyle on 08/21. -Patient is not complaining of any pain. -CBC showed a hemoglobin of 9.4, 12.6 prior to surgery. -Type and cross done, will repeat CBC in the a.m. -Continue pain meds per Ortho team. -Hip x-ray in the a.m. (2) Nausea & vomiting: -Symptoms improved after given Zofran and 500 CC NSS. -CBC changes are consistent with normal postsurgical changes. Hemoglobin of 9.4. CBC in a.m. -CMP benign. -Zofran and Reglan as needed orders in. -Will continue to monitor. Will hold on any further fluids at this time. (3) Depression: -Continue home venlafaxine. Supervising Physician Co-Signing Physician Notes Attending addendum: I have physically seen this patient, have supervised the medical residents activities, and agree with the H&P unless as otherwise noted. Assessment and Plan: Iveth Heck/emergent medical consult- Patient was initially seen emergently as a code purple was called due to patient having a near syncopal episode while going to the bathroom. She appeared pale, and was initially tachycardic and hypotensive. NSS 500ml fluid bolus Zofran 4 mg IV Fingerstick was 157 Pulse ox was in the mid 90s on room air CBC with differential, chemistry profile, magnesium level, troponin and type and screen labs drawn Patient will be transferred to the PCU for close monitoring Status post left CROW 08/21- Ongoing care per primary service Dr. Boyle History of Present Illness Reason for Consultation: Medical management Attending Physician: Roberto Carlos Boyle DO History of Present Illness Patient is a 52-year-old female with past medical history of depression who status post left hip arthroplasty done by Dr. Boyle on 08/21. Patient tolerated the procedure well. This evening the patient stood up to go to the bathroom and became lightheaded and started having episodes of nausea and vomiting. Patient does not remember anything after she stood up. She states that she has been eating well and drinking fluids throughout the day. Patient received Zofran and 500 NSS bolus and her symptoms started to resolve. She still has some nausea at time of consult but is no longer having any vomiting. Allergies Allergy/AdvReac Type Severity Reaction Status Date / Time No Known Allergies Allergy Unknown Verified 08/21/23 05:29 Home Medications Medication Instructions Recorded Confirmed Type multivitamin (Daily Multi-Vitamin 1 tab PO QAM 03/16/19 08/21/23 History tablet) acetaminophen 650 mg 1,300 mg PO QAM 07/16/23 08/21/23 History tablet,extended release hydrocortisone 2.5 % topical 1 applic topical UD 07/16/23 08/21/23 History ointment linaclotide 290 mcg capsule 290 mcg PO Q2D 07/16/23 08/21/23 History (Linzess) venlafaxine 75 mg capsule,extended 75 mg PO QAM 07/16/23 08/21/23 History release 24 hr (Effexor XR) cefadroxil 500 mg capsule 500 mg PO BID 10 days #20 caps 08/22/23 Rx oxycodone 5 mg tablet 5 mg PO Q4H PRN pain #30 tabs 08/22/23 Rx Patient History Medical History Hx of migraines Raynaud phenomenon Constipation Chronic- stable Depression History of stomach ulcers ~2019 Surgical History Hx of shoulder surgery right, 2020 History of esophagogastroduodenoscopy (EGD) History of colonoscopy History of colposcopy History of appendectomy (2015) Family History Uncle Myocardial infarction Colorectal cancer Aunt Crohn's disease Breast cancer Father Respiratory disorder Sister Muscular dystrophy Denies family history of Ovarian cancer Prostate cancer Social History Smoking Status: Never smoker Second Hand Exposure: Yes (hx growing up); Do You Dip or Chew Tobacco: No; Tobacco Cessation Education Requested by Patient: No Hx Alcohol Use: Yes Alcohol type: beer Alcohol Intake Frequency Comment: 3-4 drinks/day Hx Substance Use: No Preferred Language: Welsh Communication Ability: Effective Visual Impairment: No Limitations Hearing Ability: Normal [employer] Professor Required: No Beliefs That Will Affect Care: None marital status: Current Living Situation: Spouse current occupational status: employed 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 How many Children do You have: 0 Other Information That Helps Us Care for You: No Feels Safe at Home: Yes Safety Concerns: Feels Safe At This Time Childhood Exposure to Second-Hand Smoke: Yes Diet: regular Dental Care, Regularly: Yes Physical Activity Frequency: 1-2 Times per Week Seatbelt Use: always Sunscreen Use: No Assistive Devices: Walker Review of Systems Review of Systems: All systems reviewed & are unremarkable except as noted in Subjective Physical Exam Constitutional: well developed; no acute distress Eyes: PERRL, conjunctivae normal, anicteric sclerae Respiratory: normal respiratory effort, lungs clear to auscultation Cardiovascular: RRR, no murmur, no edema Gastrointestinal (Abdomen): normal bowel sounds, soft, nontender, no hepatosplenomegaly Musculoskeletal: Left hip mild swelling without erythema or warmth Skin: no rashes, warm and dry Results & Data Results & Data Vital Signs (Past 12 Hours) Vital Signs Temp Pulse Resp BP Pulse Ox O2 Del Method 08/21/23 20:21 36.7 C 69 16 100/64 100 Room Air 08/21/23 15:28 36.4 C L 83 16 92/51 L 99 Room Air 08/21/23 12:50 36.5 C 94 H 16 90/43 L 97 Room Air Resident Activity Tracking Resident Involvement: Resident Care Provided Care Provided: Adult Hospital Medicine
[2023-08-22 00:23] LABS: Alanine Aminotransferase 10 U/L (7-52); Albumin Globulin Ratio 1.7 (0.9-2); Albumin Level 3.6 gm/dl (3.4-5.0); Alkaline Phosphatase 69 U/L (34-104); Anion Gap 9 (3-11); Aspartate Aminotransferase 20 U/L (13-39); BUN Creatinine Ratio 20.2 (10-20); Bilirubin,Total 0.5 mg/dl (0.2-1.0); Blood Urea Nitrogen 23 mg/dl (6-23); Calcium 8.9 mg/dl (8.6-10.3); Carbon Dioxide 22 mmol/L (21-32); Chloride 104 mmol/L (98-107); Creatinine Clr Calc Pharmacy 48.4 ml/min; Est GFR (African American) 63.6 ml/min; Est GFR (Non-African American) 54.9 ml/min; Globulin 2.1 gm/dl (2.5-4.0); Glucose 165 mg/dl (70-99(Fasting)); Magnesium 1.9 mg/dl (1.7-2.4); Potassium 3.5 mmol/L (3.5-5.1); Sodium 135 mmol/L (136-145); Total Protein 5.7 gm/dl (6.0-8.3)
[2023-08-22 00:30] LABS: Troponin I High Sensitivity < 2.3 pg/ml (0-14)
[2023-08-22] MEDS ORDERED: SODIUM CHLORIDE 0.9% 500 ML IV ONE (02:36)
[2023-08-22] MEDS: KETOROLAC 30 MG/ML VIAL IV SCH ×4 (03:43→19:59)
[2023-08-22] MEDS: ACETAMINOPHEN 500 MG TAB PO SCH ×3 (03:44→19:56)
[2023-08-22 04:38] LABS: Hematocrit (blood only) 25.8 % (37.0-47.0); Hemoglobin 8.6 g/dl (12.0-16.0); Mean Corpuscular Hemoglobin 30.3 pg (25.0-34.0); Mean Corpuscular Hgb Conc 33.3 g/dL (32.0-36.0); Mean Corpuscular Volume 90.8 fL (80.0-100.0); Mean Platelet Volume 11.9 fL (9.4-12.4); Platelet Count 167 K/uL (130-400); RDW Coefficient of Variation 12.5 % (11.5-14.5); RDW Standard Deviation 41.4 fL (36.4-46.3); Red Blood Count 2.84 M/uL (4.20-5.40); White Blood Count 8.55 K/ul (4.8-10.8)
[2023-08-22 04:44] LABS: Albumin Globulin Ratio 1.7 (0.9-2); Albumin Level 3.4 gm/dl (3.4-5.0); BUN Creatinine Ratio 25.3 (10-20); Bilirubin,Total 0.5 mg/dl (0.2-1.0); Calcium 8.6 mg/dl (8.6-10.3); Creatinine Clr Calc Pharmacy 63.4 ml/min; Est GFR (African American) 88.2 ml/min; Est GFR (Non-African American) 76.1 ml/min; Potassium 4.1 mmol/L (3.5-5.1); Total Protein 5.4 gm/dl (6.0-8.3)
--- NOTE | 2023-08-22 07:06 | Orthopedic Progress Note ---
Date of Service August 22, 2023 Assessment & Plan (1) Status post left hip replacement: She seems to be doing fairly well with her left hip. I am a little concerned that she had an unwitnessed fall and she is not sure exactly how she fell. We will obtain an x-ray of the hip. She is feeling much better this morning. Her blood pressure still low at 84/52. We will see what the hospitalist says today. Will see how she does with physical therapy. If she does well with therapy and the hospitalist feels that she is stable then she can be discharged home today. However, if she does not do well with therapy or needs any further care we can certainly keep her an extra day. Mathew Sandra was seen and examined at bedside this morning. She was initially doing well with her hip last night. She was up and walking to the bathroom several times. She then had some pain meds and went up to go to the bathroom again and became very lightheaded and nauseous. She fell to the ground. She does not recall how she fell. She vomited several times. The hospitalist was consulted and she was transferred to the ICU for cardiac monitoring. This morning she is feeling much better. She is not nauseous. She is not having any pain in her hip.. Review of Systems All systems reviewed & are unremarkable except as noted in HPI & below. Physical Exam On physical examination left hip, the dressing is clean and dry. Her leg lengths are equal. I was able to do gentle range of motion of her hip without much pain.. Results & Data Results & Data Laboratory Results . Diagnostic Findings Initial postoperative x-rays of the left hip show the prosthesis to be in anatomic alignment without any evidence of fracture complication, or loosening.. PG Care Time/CCT Total # of Minutes Spent Total Time Spent with Patient: Total time spent is greater than 50% in coordination of care (as documented) at patient's floor/unit and/or counseling patient: Coding Level of Care Code 38082 Post Operative Follow-Up Diagnoses Status post left hip replacement Z96.642
[2023-08-22] MEDS ORDERED: dexAMETHasone 4 MG TAB PO SCH (08:00)
[2023-08-22] MEDS ORDERED: SODIUM CHLORIDE 0.9% 250 ML IV PRN (08:39)
[2023-08-22] MEDS: MULTIVITAMIN TAB PO SCH (08:47)
[2023-08-22] MEDS: VENLAFAXINE HCL XR 75 MG CAPXR PO SCH (08:47)
[2023-08-22] MEDS: ASPIRIN 81 MG ECTAB PO SCH ×2 (08:47→19:41)
[2023-08-22] MEDS: DOCUSATE SODIUM 100 MG CAP PO SCH ×2 (08:47→19:42)
[2023-08-22] MEDS: cephALEXin 500 MG CAP PO SCH ×2 (11:54→19:42)
--- NOTE | 2023-08-22 12:17 | Communication Note ---
Date of Service: August 22, 2023 I was requested to see the patient today in consultation. Please refer to the consult note earlier this morning by Nils Evans for details of the initial consultation. In brief, the patient had a hip surgery done by Dr. Roberto Carlos Boyle yesterday 08/21. Overnight, she had a syncopal episode when the hospitalist team was consulted. The syncopal episode was most likely related to a combination of dehydration, pain, anesthetic drugs being in her system, anemia. This morning, noted that her blood pressure has been on the low side. Her hemoglobin was low at 8, dropped from 12-13 range a few weeks ago. I ordered a unit of blood. This is most likely expected postoperative blood loss anemia. Today, she feels well. Walked to the bathroom and did not feel dizzy. I advised against discharge today. Communicated with the primary team. She will be monitored overnight clinically and should likely be able to go home tomorrow. Noted that her urinalysis was fairly unremarkable without any leuk esterase or WBCs but her urine culture grew greater than 100,000 gram-negative rods. She says that lately she has been having burning urination off and on along with foul-smelling urine. She will be treated with an oral Keflex since she is symptomatic.
--- NOTE | 2023-08-22 13:19 | XRay Report ---
XR hip 1V LT w pelvis CLINICAL HISTORY: pt went to knees after passing out TECHNIQUE: 1 view of the left hip and single frontal view of the pelvis were obtained. Comparison: Comparison is made to pelvis radiograph 08/21/2023 FINDINGS: Patient is status post total hip arthroplasty with expected postsurgical changes including soft tissu e swelling and subcutaneous emphysema. IMPRESSION: Expected postoperative appearance status post placement of total hip arthroplasty. ACT 112: Negative or not required by law. Electronically signed by: Garett Salcedo M.D. 08/22/2023 1:17 PM
[2023-08-22] MEDS: SENNA 8.6 MG TAB PO SCH (19:42)
[2023-08-23] MEDS: ACETAMINOPHEN 500 MG TAB PO SCH (04:11)
[2023-08-23] MEDS: KETOROLAC 30 MG/ML VIAL IV SCH (04:11)
[2023-08-23 04:34] LABS: Hematocrit (blood only) 27.2 % (37.0-47.0); Hemoglobin 9.3 g/dl (12.0-16.0); Mean Corpuscular Hemoglobin 30.5 pg (25.0-34.0); Mean Corpuscular Hgb Conc 34.2 g/dL (32.0-36.0); Mean Corpuscular Volume 89.2 fL (80.0-100.0); Mean Platelet Volume 11.9 fL (9.4-12.4); Platelet Count 169 K/uL (130-400); RDW Standard Deviation 45.3 fL (36.4-46.3); Red Blood Count 3.05 M/uL (4.20-5.40)
[2023-08-23 04:46] LABS: Albumin Globulin Ratio 1.7 (0.9-2); Albumin Level 3.5 gm/dl (3.4-5.0); BUN Creatinine Ratio 23.7 (10-20); Bilirubin,Total 0.3 mg/dl (0.2-1.0); Creatinine Clr Calc Pharmacy 99.2 ml/min; Est GFR (African American) 121.3 ml/min; Est GFR (Non-African American) 104.6 ml/min; Globulin 2.1 gm/dl (2.5-4.0); Potassium 4.1 mmol/L (3.5-5.1); Total Protein 5.6 gm/dl (6.0-8.3)
--- NOTE | 2023-08-23 05:56 | Billing Data ---
Date of Service August 23, 2023 Coding Level of Care Code 09272 IN/OBS CONSULT LVL 4,60M
--- NOTE | 2023-08-23 07:06 | Orthopedic Progress Note ---
Date of Service August 23, 2023 Assessment & Plan (1) Status post left hip replacement: Overall she is doing well. She is not having much pain in the left hip. She received a single unit of blood yesterday and her H&H has returned to normal. Her vital signs are stable. She will be seen by therapy today for ambulation and range of motion exercises. If it is okay with the hospitalist, she can be discharged home today. She will follow-up with orthopedics in 2 weeks. Mathew Sandra was seen and examined at bedside this morning. Overall she is doing much better. She says she feels good. She was up and ambulating with nursing staff and was seen by therapy yesterday. She has no new complaints.. Review of Systems All systems reviewed & are unremarkable except as noted in HPI & below. Physical Exam On physical examination of the left hip, the dressing is clean and dry. Her legs out full extension. She has active dorsiflexion plantarflexion of her left ankle.. Results & Data Results & Data Laboratory Results . Diagnostic Findings Additional x-rays of the left hip show the prosthesis to be in anatomic alignment without any evidence of fracture complication, or loosening.. PG Care Time/CCT Total # of Minutes Spent Total Time Spent with Patient: Total time spent is greater than 50% in coordination of care (as documented) at patient's floor/unit and/or counseling patient: Coding Level of Care Code 43907 Post Operative Follow-Up Diagnoses Status post left hip replacement Z96.642
--- NOTE | 2023-08-23 07:11 | Discharge Summary ---
Date of Service August 23, 2023 Principal Diagnosis Same as "Discharge Diagnosis" noted below under Discharge Instructions. Discharge Exam On physical examination of the left hip, the dressing is clean and dry. Her legs out full extension. She has active dorsiflexion plantarflexion of her left ankle.. Discharge Data Consultations 08/22/23 08:12 Consult Hospitalist Routine 08/23/23 07:08 Consult Maintenance Analyst Routine Procedures Performed Operation Date: 08/21/23 07:00 Actual Procedures p Left Anterior Total Hip Arthroplasty(Left) - Roberto Carlos Boyle DO Ordered Studies 08/21/23 07:00 FL hip LT 1V Routine Hospital Course (1) Status post left hip replacement: On August 21, 2023 Jocy arrived at [facility] and underwent a left anterior hip replacement without complication. She had a spinal anesthetic. Postoperatively she was started on aspirin for DVT prophylaxis and transferred to the general orthopedic floors. On the night of surgery, she was up ambulating to the bathroom. She was initially doing well. She then received some pain medications and tried to ambulate to the bathroom. She had a hypotensive episode and fell. She was having nausea and vomiting. She was transferred to the ICU for cardiac evaluation. Her initial H&H was a little bit low. On postop day #1, she received a single unit of packed red blood cells. She was feeling better. An x-ray of her hip did not show any fracture or trauma. She was able to participate some with physical therapy. Her pain was well-controlled. On postop day #2, she was doing better. Her H&H was returning to her baseline. Her vital signs are stable. She was able to participate well with physical therapy doing ambulation and range of motion exercises. She was t hen discharged home. She will follow-up orthopedics in 2 weeks. PG Care Time/CCT Total # of Minutes Spent Total Time Spent with Patient: Total time spent is greater than 50% in coordination of care (as documented) at patient's floor/unit and/or counseling patient: Discharge Plan Discharge Items Patient Disposition: Home - Self-Care Reason For Visit: DJD Hip Left Discharge Diagnosis: Left hip replacement Activity: Per Instructions section Non-emergency contact: Surgeon Call non-emergency contact if: your wound has increased redness and your wound has increased drainage Follow-up/Referrals: Angie Kumar MD [Primary Care Provider] - Diet: Regular Addtl Attending Provider Instructions: Activity and Therapy Recommendations: * If you are using [facility] then therapy will be provided at your home until they feel you have accomplished all of your goals. * If you are using [facility] then Physical Therapy will be provided until they feel you are ready to start Outpatient Physical Therapy. * If you are not using home therapy then Outpatient Physical Therapy should start about 3-5 days from your day of surgery. Therapy will last about 6-10 weeks * You were shown a series of exercises in the hospital. Do these exercises three times each day including the exercises you were shown in physical therapy. * Get up and walk several times each day.~ For the first four weeks, try not to stand or walk for more than one hour at a time. If you do stand or walk for more than one hour, you will not hurt anything, but your leg will likely swell.~~ * As you feel comfortable, you may change from the walker or crutches to a cane and~then to independent walking. Medications: * Narcotic You will likely be sent home from the hospital with a prescription for the narcotic pain medication that worked best throughout your stay. * Cefadroxil -take the antibiotic twice a day for 10 days to help prevent infection. * Aspirin Most patients will be required to take Aspirin 81mg twice a day for 6 weeks after surgery. This is obtained [id number] and a prescription is not necessary. * Other medications may be prescribed for specific circumstances. If you have any questions, please call the office at . * Resume previous home medications unless otherwise instructed TEDs/Elastic Stockings: The white elastic stockings help limit swelling and prevent blood clots from forming in your legs. The more you wear them, the more they work. Wear them for six weeks. Dressing Care: Leave the Silverlon dressing in place for 7 days. After 7 days you may remove the dressing. If the incision is not draining then you may leave the compa open to air. If there is a little bit of drainage or if the compa are getting stuck on your clothing then cover the incision with a dry dressing. The compa will be removed at your 2 week follow-up appointment. Showering: You may shower with the Silverlon dressing in place. Do not let the shower spray hit the dressing directly. Pat the Silverlon dressing dry. If the dressing becomes wet underneath, then simply remove the dressing. Keep the incision dry until you are 7 days out from the day of surgery. After 7 days you may remove the Silverlon dressing and shower with the compa exposed. Let soapy water run over the compa and pat them dry. Do not scrub or soak the incision. Things To Watch For: * Drainage from the incision site that occurs more than one week after your surgery. * Increased redness at the incision site. * Fever above 102 degrees Fahrenheit. * Unusual chest pain or shortness of breath. * Call [facility] at with any of the above problems Follow-Up Visit: Follow-up with Dr. Boyle's PA (Roberto Carlos Ramos) 2-3 weeks after your day of surgery. He will remove your compa and answer any questions. If you have any additional questions or concerns, Dr Boyle is usually in the office at the same time and will be available An appointment was probably scheduled when you signed-up for surgery in the office. If you have any questions call Office Instructions: More detailed instructions as well as Frequently Asked Questions were provided in a folder by our office when you signed-up for surgery. Please review these instructions when you get home. If you have any further questions or concerns, please feel free to call the office at [phone] Pending Studies at Discharge: No Stand-Alone Forms: My [facility], Smoking Cessation Medications and DC Order Prescriptions: New oxycodone 5 mg Tablet 5 mg PO Q4H PRN (Reason: pain) Qty: 30 0RF cefadroxil 500 mg capsule 500 mg PO BID 10 Days Qty: 20 0RF aspirin 81 mg Tablet,Delayed Release (Dr/Ec) 81 mg PO BID 42 Days Qty: 0 0RF Continued multivitamin [Daily Multi-Vitamin] tablet 1 tab PO QAM acetaminophen [Tylenol Arthritis] 650 mg Tablet Extended Release 1,300 mg PO QAM venlafaxine [Effexor XR] 75 mg capsule,extended release 24hr 75 mg PO QAM hydrocortisone 2.5 % ointment 1 applic TOP UD Rx Instructions: 1 applic TOP Apply to areas of face twice daily x 5 days, then once daily x 5 days as directed.; Linzess 290 mcg capsule 290 mcg PO Q2D Patient Comments: takes when "she needs to" Rx Instructions: 290 mcg PO Every other day; Discharge Orders: Discharge Order (Routine); Ordered 08/23/23 Ordered By: Roberto Carlos Boyle Admission Data Admit Date/Time: 08/21/23 08:22 Attending Provider: Roberto Carlos Boyle Admit Provider: Roberto Carlos Boyle Primary Care Provider: Angie Kumar Other Providers: [employer]; Richie Jauregui; Ming Arcos; Lambert Fisher; Robert Louis; Andrea Fernandez; Ruba Murcia; Mary Jo Rivera; Jose Armando Dent; dA Grande; Roberto Carlos Zambrano; Edilberto Ramsey; Esha Brown
[2023-08-23] MEDS: VENLAFAXINE HCL XR 75 MG CAPXR PO SCH (08:04)
[2023-08-23] MEDS: MULTIVITAMIN TAB PO SCH (08:04)
[2023-08-23] MEDS: ASPIRIN 81 MG ECTAB PO SCH (08:04)
[2023-08-23] MEDS: DOCUSATE SODIUM 100 MG CAP PO SCH (08:05)
[2023-08-23] MEDS: cephALEXin 500 MG CAP PO SCH (08:05)
--- NOTE | 2023-08-23 08:42 | Critical Care Consultation ---
Date of Consultation August 23, 2023 Assessment & Plan (1) Transient hypotension: (2) Anemia of chronic disease: (3) Nausea & vomiting: (4) Vasovagal episode: Plan 52-year-old female with a vasovagal episode yesterday evening resulting in transient hypotension. She received a fluid bolus and 1 unit of packed RBCs. She is stable currently and does not require ICU stay. I suspect she can likely be dismissed from the hospital. She will need a workup of her anemia as an outpatient. She has no further nausea or vomiting. Thank you for the consult. Critical care team will sign off. History of Present Illness Reason for Consultation: Transient hypotension Attending Physician: Roberto Carlos Boyle DO History of Present Illness 52-year-old female with a history of osteoporosis who presented for left hip arthroplasty 08/21/2023. Procedure went well. She had a vasovagal episode while standing up last night. She also had some mild nausea and vomiting. She was transferred to a monitored bed and ICU consult was placed this morning. This morning she is sitting up in bed and denies any significant complaints other than mild abdominal discomfort. She denies any chest pains, dizziness, fevers, chills or night sweats. She was able to ambulate around the ICU without issue. Lactic acid was checked and was 1.7. She received 1 unit of packed RBCs yesterday evening. She has evidence of anemia of chronic disease. She denies any hematemesis or melena. Allergies Allergy/AdvReac Type Severity Reaction Status Date / Time No Known Allergies Allergy Unknown Verified 08/21/23 05:29 Home Medications Medication Instructions Recorded Confirmed Type multivitamin (Daily Multi-Vitamin 1 tab PO QAM 03/16/19 08/21/23 History tablet) acetaminophen 650 mg 1,300 mg PO QAM 07/16/23 08/21/23 History tablet,extended release hydrocortisone 2.5 % topical 1 applic topical UD 07/16/23 08/21/23 History ointment linaclotide 290 mcg capsule 290 mcg PO Q2D 07/16/23 08/21/23 History (Linzess) venlafaxine 75 mg capsule,extended 75 mg PO QAM 07/16/23 08/21/23 History release 24 hr (Effexor XR) cefadroxil 500 mg capsule 500 mg PO BID 10 days #20 caps 08/22/23 Rx oxycodone 5 mg tablet 5 mg PO Q4H PRN pain #30 tabs 08/22/23 Rx Patient History Medical History (Updated 08/23/23 @ 10:53 by Edilberto Ramsey MD) Vasovagal episode Anemia of chronic disease Transient hypotension Hx of migraines Raynaud phenomenon Constipation Chronic- stable Depression History of stomach ulcers ~2019 Surgical History (Updated 08/21/23 @ 13:42 by Roberto Carlos Boyle DO) Hx of shoulder surgery right, 2020 History of esophagogastroduodenoscopy (EGD) History of colonoscopy History of colposcopy History of appendectomy (2015) Family History Uncle Myocardial infarction Colorectal cancer Aunt Crohn's disease Breast cancer Father Respiratory disorder Sister Muscular dystrophy Denies family history of Ovarian cancer Prostate cancer Social History Smoking Status: Never smoker Second Hand Exposure: Yes (hx growing up); Do You Dip or Chew Tobacco: No; Tobacco Cessation Education Requested by Patient: No Hx Alcohol Use: Yes Alcohol type: beer Alcohol Intake Frequency Comment: 3-4 drinks/day Hx Substance Use: No Preferred Language: Cambodian Communication Ability: Effective Visual Impairment: No Limitations Hearing Ability: Normal 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 Attendant Required: No Beliefs That Will Affect Care: None marital status: Current Living Situation: Spouse current occupational status: employed current occupation: [employer] How many Children do You have: 0 Other Information That Helps Us Care for You: No Feels Safe at Home: Yes Safety Concerns: Feels Safe At This Time Childhood Exposure to Second-Hand Smoke: Yes Diet: regular Dental Care, Regularly: Yes Physical Activity Frequency: 1-2 Times per Week Seatbelt Use: always Sunscreen Use: No Assistive Devices: Walker Review of Systems Review of Systems: All systems reviewed & are unremarkable except as noted in HPI & below Physical Exam Physical Exam: Constitutional: Patient appears to be of their stated age. Patient is in no apparent distress. Patient is well-developed. Eyes: Pupils are equal round and reactive to light. Conjunctivae are normal. Anicteric sclera. Ears nose, mouth and throat: Deferred. Neck: Trachea is midline. Visual inspection is normal. Respiratory: Clear to auscultation bilaterally. No use of accessory muscles. No significant clubbing noted. Cardiovascular: Regular rate and rhythm. No murmurs. No edema. Gastrointestinal: Normal bowel sounds, soft, nontender and nondistended. No hepatosplenomegaly noted. Musculoskeletal: Left hip with good range of motion. Minimal swelling. Skin: No rashes, warm dry and intact. Neurologic: No obvious focal neurological deficits seen. Psychiatric: Alert and oriented x3 with a euthymic affect. Results & Data Results & Data Vital Signs (Past 12 Hours) Vital Signs Temp Pulse Resp BP Pulse Ox O2 Del Method 08/23/23 04:00 36.8 C 65 16 101/64 97 Room Air 08/23/23 00:28 36.8 C 66 16 99/62 L 98 Room Air Coding Level of Care Code 15198 IN/OBS CONSULT LVL 3,45M Diagnoses Transient hypotension I95.9 Anemia of chronic disease D63.8 Nausea & vomiting R11.2 Vasovagal episode R55
== END 2023-08-23 11:56 | disposition home health service (06) | DRG 470 ==
LOC: ASU 04:57 → 3E 04:57 → 1E 08-22 00:13